=== PATIENT | male | born 1990 | race Caucasian/White ===

== ENCOUNTER 2022-03-31 11:16 | Emergency (ER) | payer MEDICAID, SELFPAY ==
[2022-03-31 11:21] VITALS: BP 174/109; PULSE 110; RESP 16; TEMP 36.8; O2SAT 95; BMI 36.6
[2022-03-31 11:24] VITALS: BP 174/109; PULSE 110; RESP 16; TEMP 36.8; O2SAT 95
--- NOTE | 2022-03-31 11:46 | W.ED.EYEPROB ---
HPI - Eye Problem General: Chief complaint: Eye Problems Stated complaint: left eye is red and in pain Time Seen by Provider: 03/31/22 11:25 History of Present Illness: Patient is a 31-year-old male who comes to the ED with left eye complaint. This morning patient woke up with his left eye was crusted shut. He had to wipe his left eyelid and remove some of the drainage to open eye. His left eye is red and he is having increased watering left eye. Left eye is itchy and has a mild burning pain to it. Denies any vision changes. Denies any fevers or any other upper respiratory symptoms. For Thanksgiving he was around over 40 people and unsure if he might of come across somebody with pinkeye. Denies any injury, foreign body in eye or any other irritant exposure. Associated symptoms: Denies fever(s), headache(s), nausea, neck pain or vomiting Review of Systems Const: Denies: fever(s), chills or fatigue Eyes: Reports: eye discomfort (Mild burning in the left), eye discharge (Left eye), eye redness (Left eye) and increased production of tears (Left); Denies: change in vision ENMT: Denies: throat pain, odynophagia, nasal discharge or nasal congestion Card: Denies: chest pain, palpitations, edema, swelling of feet/ankles, dyspnea on exertion or orthopnea Resp: Denies: dyspnea, productive cough or non-productive cough GI: Denies: abdominal pain, nausea, vomiting, diarrhea, constipation or hematochezia : Denies: flank pain, difficulty urinating, dysuria or hematuria Musc: Denies: neck pain, back pain or extremity swelling Skin/Breast: Denies: rash or new lesions Neuro: Denies: headache(s), numbness in extremities or weakness in extremities PFSH ED PFSH: Medical History No pertinent past medical history Surgical History No pertinent past surgical history Physical Exam Const: COMMON NORMALS: no acute distress, patient oriented x3 and alert HENMT: COMMON NORMALS: normocephalic HEAD & SCALP: normocephalic MOUTH: Normal oral and palatal mucosa present THROAT: posterior oropharynx normal and uvula midline Eye: COMMON NORMALS: Equal, round and reactive pupils present and EOMs intact bilaterally PERIORBITAL: periorbital findings normal EYELID: eyelids normal CONJUNCTIVA: Yes conjunctival abnormal positive left conjunctival injection and discharge purulent PUPIL: Yes Equal, round and reactive pupils present Neck/C-Spine: COMMON NORMALS: supple GENERAL: Yes normal visual inspection Resp: COMMON NORMALS: normal respiratory effort, No retractions, No use of accessory muscles and clear to auscultation bilaterally AUSCULTATION: clear to auscultation bilaterally Cardio: COMMON NORMALS: regular rate, regular rhythm, S1 normal heart sound present, S2 normal heart sound present, No gallops present (Cardio), No clicks present (Cardio), No murmurs present (Cardio) and Peripheral pulses 2+ throughout RATE: regular rate RHYTHM: regular rhythm HEART SOUNDS: S1 normal heart sound present and S2 normal heart sound present PERIPHERAL PULSES: Peripheral pulses 2+ throughout GI: COMMON NORMALS: Normal to inspection, nondistended, normoactive bowel sounds present, Soft to palpation, non-tender and no masses PALPATION: Yes Soft to palpation : COMMON NORMALS: Yes no CVA tenderness BLADDER/KIDNEY EXAM: Yes no CVA tenderness Back/Pelvis: COMMON NORMALS: no CVA tenderness Extremity: COMMON NORMALS: normal to inspection Neuro: COMMON NORMALS: patient oriented x3 SENSORIUM/ORIENTATION: Yes alert GAIT: Yes Normal gait present Skin: GENERAL SKIN EXAM: dry skin Course Vital Signs: Vital signs: Vital Signs Temperature 98.2 F 03/31/22 12:01 Pulse Rate 110 H 03/31/22 12:01 Respiratory Rate 16 03/31/22 12:01 Blood Pressure 174/109 03/31/22 12:01 Pulse Oximetry 95 03/31/22 12:01 Oxygen Delivery Me thod 03/31/22 11:24 MDM - Eye Problem Medical Decision Making Patient is a 31-year-old male comes to the ED with left eye redness. He woke up with it in an his eyelids stuck together due to discharge. Denies any other symptoms or any vision changes. Exam shows left conjunction with local injection and some purulent discharge. The rest of his exam is benign. He is diagnosed with conjunctivitis of the left eye and discharged home with a prescription for Maxitrol eyedrops. Told to follow-up with his PCP within the next week for reevaluation. Return ED precautions given. Patient understood and agreed with plan. Discharge Plan Discharge Patient Disposition: Home Clinical Impression: Conjunctivitis of left eye Qualifiers: Conjunctivitis type: acute Acute conjunctivitis type: unspecified Qualified Code(s): H10.32 - Unspecified acute conjunctivitis, left eye Condition: Stable Prescriptions: New Maxitrol 3.5mg/mL-10,000 unit/mL-0.1 % drops,suspension 1 drp ophthalmic (eye) Q6H 7 Days Qty: 5 0RF Rx Instructions: Place 1 drop in the left eye every 6 hours for the next 7 days. Discharge Orders: Discharge ED (Routine); Ordered 03/31/22 Ordered By: Sagar Palacios Discharge Diet: Regular Discharge Activity: Increase activity as tolerated Patient Instructions: Conjunctivitis (ED) Activity Restrictions/Additional Instructions: Follow-up with medical provider as directed in the next 7 to 10 days for reevaluation. Take medications as prescribed. Return to the ER or your medical provider if condition worsens. Please read and understand discharge instructions. Thank you for choosing [facility] for your healthcare needs today. Please realize this is an emergency room and that we are providing you with a medical screening exam and this may not be complete and all inclusive of all the testing and or work up that you may need to determine your ailment or severity of your illness. It is very important that you follow up as instructed or that you return to the Emergency Department should you have concerns or if your condition changes or worsens in any way. Coding Level of Care Code ED Body Maker Machine Setter for Aminata Rausch Exam Comprehensive
[2022-03-31 12:01] VITALS: BP 174/109; PULSE 110; RESP 16; TEMP 36.8; O2SAT 95
== END 2022-03-31 12:00 | disposition home or self-care (01) ==
PROVIDERS: Emergency Provider Physician Assistant
DX: H10.32 Unspecified acute conjunctivitis, left eye (principal)
CPT/HCPCS: 99283

== ENCOUNTER 2022-07-19 19:25 | Emergency (ER) | payer MEDICAID, SELFPAY ==
[2022-07-19 19:56] VITALS: BP 162/105; PULSE 104; RESP 18; TEMP 36.8; O2SAT 96; BMI 5370.1
--- NOTE | 2022-07-19 20:35 | ED_ITS ---
HPI - General Adult General: Chief complaint: General Medical Stated complaint: tonsil issues Time Seen by Provider: 07/19/22 19:31 History of Present Illness: Patient is in today for 2 days of throat pain. He reports that he has had a sore throat worse on the right side x2 days. He reports that yesterday he noticed a hole in his right tonsil. He denies fever, chills, nausea, vomiting. Associated symptoms: Deny chest pain, dyspnea, headache(s), nausea, palpitations, syncope or vomiting Review of Systems Const: Denies: fever(s), chills or body aches Eyes: Denies: change in vision or blurry vision ENMT: Reports: throat pain, enlarged tonsils and odynophagia Card: Denies: chest pain, palpitations, irregular heart rhythm, lightheadedness or syncope Resp: Denies: dyspnea, productive cough or non-productive cough GI: Denies: abdominal pain, nausea or vomiting : Denies: flank pain, dysuria, urinary frequency, urinary urgency or urinary hesitancy Musc: Denies: neck pain or back pain Neuro: Denies: headache(s), numbness in extremities or weakness in extremities PFSH ED PFSH: Medical History No pertinent past medical history Surgical History No pertinent past surgical history Physical Exam Const: COMMON NORMALS: no acute distress, patient oriented x3 and alert GENERAL APPEARANCE: cooperative ORIENTATION/CONSCIOUSNESS: Yes awake, Yes oriented to person, Yes oriented to place and Yes oriented to time HENMT: COMMON NORMALS: EAC's normal and TM's normal bilaterally EXTERNAL AUDITORY CANAL: EAC's normal TYMPANIC MEMBRANE: TM's normal bilaterally MOUTH: Normal oral and palatal mucosa present THROAT: posterior oropharynx normal and abnormal tonsil bilateral erythema, exudates and crypts OTHER: Uvula is midline. There is no definitive abscess, swelling does not extend to the hard palate, patient is able to swallow and manage secretions. No concern at this time for peritonsillar abscess Eye: COMMON NORMALS: Equal, round and reactive pupils present, EOMs intact bilaterally and conjunctivae normal GENERAL EYE: appearance normal, both eyes and all related structures ALIGNMENT: Yes alignment normal CONJUNCTIVA: Yes conjunctivae normal SCLERA: sclerae normal PUPIL: Yes Equal, round and reactive pupils present Neck/C-Spine: COMMON NORMALS: full ROM Resp: COMMON NORMALS: normal respiratory effort, No retractions, No use of accessory muscles and clear to auscultation bilaterally EFFORT & INSPECTION: Yes symmetric chest movement AUSCULTATION: clear to auscultation bilaterally Cardio: COMMON NORMALS: regular rate, regular rhythm, S1 normal heart sound present and S2 normal heart sound present RATE: regular rate RHYTHM: regular rhythm HEART SOUNDS: S1 normal heart sound present and S2 normal heart sound present GI: COMMON NORMALS: Normal to inspection, nondistended, normoactive bowel sounds present, Soft to palpation, non-tender, No hepatosplenomegaly present, no masses and no bruits INSPECTION: Yes normal to inspection PALPATION: Yes Soft to palpation and Yes No hepatosplenomegaly present : COMMON NORMALS: Yes no CVA tenderness BLADDER/KIDNEY EXAM: Yes no CVA tenderness Back/Pelvis: COMMON NORMALS: no CVA tenderness Neuro: COMMON NORMALS: patient oriented x3 SENSORIUM/ORIENTATION: Yes alert, Yes oriented to person, Yes oriented to place and Yes oriented to time Psych: COMMON NORMALS: cooperative Course Vital Signs: Vital signs: Vital Signs Temperature 98.2 F 07/19/22 19:56 Pulse Rate 104 H 07/19/22 19:56 Respiratory Rate 18 07/19/22 19:56 Blood Pressure 162/105 07/19/22 19:56 Pulse Oximetry 96 07/19/22 19:56 Oxygen Delivery Me thod 07/19/22 19:56 [facility] - General Adult Medical Decision Making Differentials include strep pharyngitis, exudative tonsillitis, cryptic tonsils, peritonsillar abscess We will go ahead and treat patient to cover for tonsillitis with antibiotic amoxicillin. I do not see any current evidence of peritonsillar abscess. Advised patient to take antibiotics as directed. Gargle with warm salt water. Alternate Tylenol and Motrin as needed for pain and swelling. 1 dose of Toradol is given in here today for pain and swelling. Advised patient to follow-up with primary care provider as needed. Return to the ER for any new or worsening symptoms including, but not limited to, increased swelling or pain in his throat, inability to swallow, worsening symptoms despite starting antibiotic. Discharge Plan Discharge Patient Disposition: Home Clinical Impression: Exudative tonsillitis, Cryptic tonsil Condition: Stable Prescriptions: New amoxicillin 875 mg tablet 875 mg PO BID 10 Days Qty: 20 0RF Rx Instructions: Start 07/20/2022 Discharge Orders: Discharge ED (Routine); Ordered 07/19/22 Ordered By: Kelly Hicks Discharge Diet: Usual diet Discharge Activity: Resume usual activity Patient Instructions: Tonsillitis - Adult Activity Restrictions/Additional Instructions: Take antibiotics as directed. I recommend gargling with warm salt water gargles. Alternate Tylenol and Motrin as needed for pain and swelling. Follow- up with primary care provider as needed. Return to the ER for new or worsening symptoms. Coding Level of Care Code ED Child Life Assistant for Aminata Rausch
[2022-07-19] MEDS: ketorolac 60 mg/2 mL INJ IM (21:02)
--- NOTE | 2022-07-24 13:08 | DCPLANNER ---
Addendum entered by Nancy Obregon 07/30/22 08:43: Patient had a follow up appointment scheduled at [facility] with Dr. Lake to est care - patient did attend appointment. Original Note: manager global communications called patient due to no primary care physician - patient stated that he would like help in getting established with a primary care physician. Case charles called [facility], gave clinic patients information. A follow up appointment was scheduled for Wednesday, July 27, 2022 at 8:[address] Lake. manager global communications gave patient the appointment information.
== END 2022-07-19 21:06 | disposition home or self-care (01) ==
PROVIDERS: Emergency Provider Nurse Practitioner Family
DX: J03.90 Acute tonsillitis, unspecified (principal); J35.8 Other chronic diseases of tonsils and adenoids
CPT/HCPCS: 96372; 99284; J1885